=== PATIENT | female | born 2000 | race Caucasian/White ===

== ENCOUNTER 2023-09-16 10:17 | Emergency (ER) | payer OTHER ==
[2023-09-16 10:39] VITALS: O2SAT 100
--- NOTE | 2023-09-16 10:54 | ED Physician Documentation ---
History of Present Illness - Stated complaint Stated Complaint: HIGH HR,SHAKING - Chief complaint Chief Complaint: Cardiac - Additonal information Additional information: 23-year-old female with history of SVT diagnosed on Zio patch. She saw hide and skin colerer in [place] because of palpitations and had some intermittent SVT noted on the patch. This morning she felt her heart rate was elevated and felt palpitations she took her pulse and thought it was in the 150s. Has been trending down since that time. On arrival here her heart rate is in the 90s. She is not on any medications. She does not use any illicit substances. She did drink a fair amount of alcohol last night and wonders if she is dehydrated. Review of Systems Constitutional: denies: Fever Cardiac: reports: Palpitations. denies: Chest pain / pressure PD PAST MEDICAL HISTORY - Past Medical History Past Medical History: Yes Cardiovascular: Other - Past Surgical History Past Surgical History: Yes - Present Medications Home Medications: Ambulatory Orders Medication Instructions Recorded Confirmed Fluvoxamine Maleate 200 mg PO DAILY 09/16/23 09/16/23 - Allergies Allergies/Adverse Reactions: Allergies Allergy/AdvReac Type Severity Reaction Status Date / Time Sulfa (Sulfonamide Allergy Nausea Verified 09/16/23 10:34 Antibiotics) - Social History Does the pt smoke?: No Smoking Status: Never smoker - Immunizations Immunizations are current?: Yes PD ED PE NORMAL - General General: Alert and oriented X 3 - HEENT HEENT: Atraumatic - Neck Neck: Supple, no meningeal sign - Cardiac Cardiac: RRR, No murmur - Respiratory Respiratory: No respiratory distress - Abdomen Abdomen: Normal bowel sounds - Extremities Extremities: No edema, No calf tenderness / cord - Neuro Neuro: Alert and oriented X 3 Results - Vitals Vitals: Vital Signs - 24 hr 09/16/23 09/16/23 09/16/23 10:31 11:30 12:28 Temperature 36.7 C Heart Rate 130 H 99 106 H Respiratory 20 17 20 Rate Blood Pressure 128/78 110/61 113/66 O2 Saturation 100 100 100 Oxygen O2 Source Room air - EKG (time done) 1042 EKG releavant findings:: EKG personally interpreted by author of this note. Relevant findings are: Normal sinus rhythm rate of 97. Possible left atrial enlargement. Normal intervals and axis. No ischemic changes noted. - Labs Labs: Laboratory Tests 09/16/23 09/16/23 10:56 10:56 WBC 8.4 RBC 4.67 Hgb 13.3 Hct 40.4 MCV 86.5 MCH 28.5 MCHC 32.9 RDW 12.6 Plt Count 286 MPV 9.2 Neut # (Auto) 6.4 Lymph # (Auto) 1.3 L [place] # (Auto) 0.4 Eos # (Auto) 0.2 Baso # (Auto) 0.1 Absolute Nucleated RBC 0.00 Nucleated RBC % 0.0 Sodium 141 Potassium 3.8 Chloride 107 Carbon Dioxide 26 Anion Gap 8.0 BUN 13 Creatinine 0.8 Estimated GFR (MDRD) 87 L Glucose 102 Calcium 9.6 Magnesium 1.9 Total Bilirubin 0.3 AST 14 ALT 11 Alkaline Phosphatase 61 Total Protein 7.8 Albumin 4.9 Globulin 2.9 Albumin/Globulin Ratio 1.7 PD Medical Decision Making - ED course ED course: Healthy female with history of SVT with a history of palpitations overnight with pulse rate in the 150s at home. She very likely did have SVT which is now resolved she is in sinus rhythm with a rate of 97. Possibly incited by alcohol consumption. Will check her electrolytes and give her some fluids here. Continue to monitor her while she is in the ED. Labs all benign. Gave her 2L NS here with improvement in her symptoms and no further SVT noted she is tolerating po, ambulatory. HR mainly in 90s, occasionally jumps up to 100s, still sinus. likely on basis of dehydration and anxiety. no sign she has PE, DTs or other nasty cause of sinus tachycardia Departure - Departure Disposition: 01 Home, Self Care Clinical Impression: Palpitations Condition: Good Instructions: ED Palpitations Comments: Your EKG showed that you are in normal sinus rhythm (your heart was beating nor mark) in the ED. Your lab work was reassuring. You should continue to hydrate yourself. Follow-up with your hide and skin colerer if symptoms recur. Forms: PCP List
[2023-09-16 11:02] LABS: BASOPHILS # (AUTO) 0.1 10^3/uL (0.0-0.1); BASOPHILS % (AUTO) 0.8 %; EOSINOPHILS # (AUTO) 0.2 10^3/uL (0.0-0.7); EOSINOPHILS % (AUTO) 2.9 %; HCT - HEMATOCRIT 40.4 % (37.0-47.0); HGB - HEMOGLOBIN 13.3 g/dL (12.0-16.0); LYMPHOCYTES # (AUTO) 1.3 10^3/uL (1.5-3.5); LYMPHOCYTES % (AUTO) 15.1 %; MEAN CORPUSCULAR HEMOGLOBIN 28.5 pg (27.0-31.0); MEAN CORPUSCULAR HGB CONC 32.9 g/dL (32.0-36.0); MEAN CORPUSCULAR VOLUME 86.5 fL (81.0-99.0); MEAN PLATELET VOLUME 9.2 fL (7.9-10.8); MONOCYTES # (AUTO) 0.4 10^3/uL (0.0-1.0); MONOCYTES % (AUTO) 4.6 %; NEUTROPHILS # (AUTO) 6.4 10^3/uL (1.5-6.6); NEUTROPHILS % (AUTO) 76.4 %; PLT - PLATELET COUNT 286 10^3/uL (130-450); RED BLOOD COUNT 4.67 10^6/uL (4.20-5.40); RED CELL DISTRIBUTION WIDTH 12.6 % (12.0-15.0); WHITE BLOOD COUNT 8.4 x10^3/uL (4.8-10.8)
[2023-09-16] MEDS: SODIUM CHLORIDE 0.9% 1,000 ML IV STA ×2 (11:02→11:57)
[2023-09-16 11:08] LABS: MAGNESIUM 1.9 mg/dL (1.7-2.3)
[2023-09-16 11:14] LABS: ALBUMIN 4.9 g/dL (3.2-5.5); ALBUMIN/GLOBULIN RATIO 1.7 (1.0-2.2); BILIRUBIN,TOTAL 0.3 mg/dL (0.2-1.0); CALCIUM 9.6 mg/dL (8.5-10.3); CREATININE 0.8 mg/dL (0.6-1.3); POTASSIUM 3.8 mmol/L (3.5-4.5); TOTAL PROTEIN 7.8 g/dL (6.4-8.9)
[2023-09-16] MEDS: ONDANSETRON 4 MG/2 ML VIAL IVP STA (11:33)
[2023-09-16 13:23] VITALS: BP 112/69
== END 2023-09-16 13:21 | disposition home or self-care (01) ==
LOC: ED 10:17
DX: R00.2 Palpitations (principal)
CPT/HCPCS: 36415; 80053; 83735; 85025; 93005; 96360; 96361; 99283